=== PATIENT | female | born 1935 | race Asian ===

== ENCOUNTER 2021-06-13 09:56 | Outpatient (CLI) | payer MEDICARE, OTHER | END 2021-06-13 09:57 | disposition home or self-care (01) | LOC: CSHMAMMO 09:56 | PROVIDERS: ATTEND Family Medicine | DX: Z12.31 Encounter for screening mammogram for malignant neoplasm of breast (principal) | CPT/HCPCS: 77063; 77067 ==

== ENCOUNTER 2022-01-13 12:39 | Outpatient (CLI) | payer MEDICARE, OTHER | END 2022-01-13 12:40 | disposition home or self-care (01) | LOC: CSHRAD 12:39 | PROVIDERS: ATTEND Family Medicine | DX: S00.83XA Contusion of other part of head, initial encounter (principal); Z98.890 Other specified postprocedural states | CPT/HCPCS: 70150 ==

== ENCOUNTER 2022-06-20 13:23 | Outpatient (CLI) | payer MEDICARE, OTHER | END 2022-06-20 13:24 | disposition home or self-care (01) | LOC: CSHMAMMO 13:23 | PROVIDERS: ATTEND Family Medicine | DX: Z12.31 Encounter for screening mammogram for malignant neoplasm of breast (principal); R92.1 Mammographic calcification found on diagnostic imaging of breast | CPT/HCPCS: 77063; 77067 ==

== ENCOUNTER 2023-07-12 07:41 | Emergency (ER) | payer MEDICARE, OTHER ==
[2023-07-12 09:20] LABS: #Monocytes 0.6 10x3/uL (0.0-1.1); #Neutrophils 6.1 10x3/uL (1.5-8.4); %Basophils 0.4 % (0.0-2.0); %Eosinophils 0.4 % (0.0-6.0); %Lymphocytes 15.3 % (18.0-47.0); %Monocytes 6.9 % (0.0-10.0); %Neutrophils 76.7 % (40.0-75.0); Hematocrit 33.1 % (34.9-44.5); Mean Corpuscular HGB CONC 33.2 g/dL (32.0-36.0); Mean Corpuscular Hemoglobin 23.4 pg (27.0-33.0); Mean Corpuscular Volume 70.3 fl (81.6-98.3); Platelet Count 239 10x3/uL (150-450); RBC Distribution Width 15.2 % (11.5-14.5); Red Blood Cell (RBC) Count 4.71 10x6/uL (3.90-5.03); White Blood Cell (WBC) Count 7.9 10x3/uL (3.5-10.5)
[2023-07-12 09:42] LABS: PTT 25.3 sec (22.0-33.0); Prothrombin Time 10.3 sec (9.5-12.1)
[2023-07-12 09:45] LABS: ALT (SGPT) 20 U/L (8-55); AST (SGOT) 28 U/L (5-34); Albumin 4.4 g/dL (3.4-4.8); Alkaline Phosphatase 91 U/L (40-110); Anion Gap 13 mmol/L (10-20); BUN (Urea Nitrogen) 21 mg/dL (9.8-20.1); Bilirubin, Total 0.4 mg/dL (0.2-1.2); Calc. Creatinine Clearance 0 mL/min (70-130); Calcium 9.3 mg/dL (7.8-10.44); Carbon Dioxide 27 mmol/L (23-31); Chloride 104 mmol/L (98-107); Estimated GFR 55; Globulin 3.2 g/dL (2.4-3.5); Glucose 118 mg/dL (83-110); Potassium 4.2 mmol/L (3.5-5.1); Protein, Total 7.6 g/dL (5.8-8.1); Sodium 140 mmol/L (136-145)
[2023-07-12] MEDS ORDERED: Hydrochlorothiazide 25 MG TAB PO SCH (09:45)
[2023-07-12 09:48] LABS: Troponin I 0.022 ng/mL (< 0.028)
== END 2023-07-12 13:20 | disposition short-term general hospital (02) ==
LOC: CSHERS 07:41
DX: S06.5X0A Traumatic subdural hemorrhage without loss of consciousness, initial encounter (principal); R42 Dizziness and giddiness; E07.9 Disorder of thyroid, unspecified; Z55.6 Problems related to health literacy; W22.8XXA Striking against or struck by other objects, initial encounter
CPT/HCPCS: 36415; 70450; 72125; 80053; 84484; 85025; 85610; 85730; 93005

== ENCOUNTER 2024-03-06 12:54 | Outpatient (CLI) | payer MEDICARE, OTHER | END 2024-03-06 12:55 | disposition home or self-care (01) | LOC: CSHRAD 12:54 | PROVIDERS: ATTEND Family Medicine | DX: Z01.818 Encounter for other preprocedural examination (principal) | CPT/HCPCS: 71046 ==